=== PATIENT | male | born 1965 | race Caucasian/White ===

== ENCOUNTER → 2016-10-20 | Outpatient (CLI) | payer OTHER ==
--- NOTE | 2016-10-20 14:25 | DIAGNOSTIC IMAGING REPORT ---
TESTICULAR ULTRASOUND HISTORY: Pain N50.819 Testes [id number] COMPARISON: None. FINDINGS: Right testis: Maximum dimension 4.8 cm. Normal vascular flow several epididymal cyst measuring up to 9 mm. Left testis: Maximum dimension 5.0 cm. Normal vascular flow. Small hydrocele. IMPRESSION: 1. Normal testes bilaterally. 2. 9 mm right epididymal cyst. 3. Small left hydrocele 4. Normal vascular characteristics Electronically signed by: Juan Lerma M.D. 10/20/2016 2:24 PM Dictated Date/Time: 10/20/2016 2:22 PM
== END | disposition home or self-care (01) ==
LOC: C.ULTR 12:45
PROVIDERS: ATTEND Urology
DX: N50.819 Testicular pain, unspecified (principal); N50.3 Cyst of epididymis; N43.3 Hydrocele, unspecified

== ENCOUNTER → 2017-10-27 | Outpatient (CLI) | payer OTHER | END | disposition home or self-care (01) | LOC: C.LABPVFM 10:55 | PROVIDERS: ATTEND Urology | DX: N43.40 Spermatocele of epididymis, unspecified (principal) ==